=== PATIENT | female | born 1980 | race Caucasian/White ===

== ENCOUNTER 2020-11-10 07:01 | Outpatient (NON) | payer OTHER, SELFPAY ==
[2020-11-10 22:42] LABS: SARS-CoV-2 RNA PCR Negative
== END 2020-11-10 07:02 ==
PROVIDERS: PCP Family Medicine; Visit Provider Internal Medicine
DX: Z20.822 Contact with and (suspected) exposure to COVID-19 (principal)
CPT/HCPCS: C9803; U0003; U0005

== ENCOUNTER 2021-12-06 00:28 | Day surgery (SDC) | payer OTHER, SELFPAY ==
[2021-11-28 13:51] VITALS: BMI 30.2
--- NOTE | 2021-11-28 14:03 | PC.NURSE ---
Report to the Outpatient Waiting Room, entrance under the green pavilion located off [facility], at time 0600 on date 12/06/21. OR Time: 0730. - You will be asked a series of questions to screen for COVID 19 for your protection. - A mask is required within the hospital. - No visitors are allowed at this time. Preoperative COVID Testing Requirements: No COVID Test needed if: (proof is required; if not received patient will have Rapid Test prior to entry) - Patient has received COVID Vaccine at least 14 days prior to procedure date or - Patient has positive COVID test result within last 90 days of surgery date. COVID Test needed if above criteria is not met Patients may have clear liquids (water, carbonated beverages, clear teas, apple juice) until 3 hours prior to surgery with a maximum of 20 ounces. - No food from midnight until time of surgery Take the following medications with a SIP of water the morning of surgery: NONE Medications to discontinue per physician: VITAMINS/SUPPLEMENTS Date to take last dose: 12/02/21 Please no make-up, nail iranian, hairspray, perfume, deodorant, or body powder the day of surgery. No jewelry (including any body piercings) or valuables the day of surgery, leave them at home. Please take a shower or bath the night before, or the morning of, surgery with an antibacterial soap. Wear comfortable, loose fitting clothing. - Jewelry must be removed prior to entering the operating room. Rings and piercings that are not removed may be cut off. - The hospital will not accept responsibility for valuables. - Please leave all valuables, including medications, at home the day of surgery. If you are going home after surgery, a licensed mechanic driver must drive you home. - NO public transportation without another adult. - We recommend that an adult stay with you for 24 hours following discharge. - We also recommend that you do not drive, make important decision, drink alcoholic beverages, or take any drugs that were not prescribed by your health care provider for at least 24 hours after your discharge time. Follow any additional instructions given to you from your surgeon. Telephone instructions given to ESTEVAN CHAN and asked if any additional questions and then verbalized understanding. Patient advised to call surgeon office or pre surgery nurse liaison [phone] if any additional questions.
[2021-12-06] VITALS (11 sets, daily range): BP systolic 111–132; BP diastolic 59–87; PULSE 80–111; RESP 10–20; TEMP 36.5–36.6; O2SAT 94–100
[2021-12-06] MEDS: LACTATED RINGERS 1,000 ML 30 ML IV CONT ×2 (06:30→10:05)
[2021-12-06 06:34] LABS: Urine Cotinine NEGATIVE
--- NOTE | 2021-12-06 06:50 | WPDHPUPDATE1 ---
History and Physical Update Update Date/Time: 12/06/21 06:50 History and Physical has been reviewed, including an updated exam of the patient. There are NO changes in the patient's condition. Risks, benefits, and alternatives have been discussed and questions answered. Patient agrees to proceed with procedure.
--- NOTE | 2021-12-06 07:08 | P.OP_ITS ---
Procedure Note - Detailed Date of Procedure 12/06/21 Pre-op Diagnosis macromastia Post-op Diagnosis same Procedure Performed Bilateral reduction mammaplasty Surgeon Ozzy Yadav MD Anesthesia general Findings Bilateral Inverted T Superior Medial Pedicle Tissue Removed: Right - 933 grams Left - 904 grams Description of Procedure She is here today for bilateral breast reduction. Previously and again today the risks, benefits, alternatives were discussed in extensive detail. I wanted her to be very realistic about the risks involved as well as expectations. We discussed aftercare and what to monitor for. She understands we can never guarantee final breast size and there will always be asymmetry. I was very upfront and honest about the risks of sensation change and even nipple loss (). Made sure answered all of her questions to her satisfaction today and consent was obtained. She was marked in the preoperative holding area with their verification. The patient was taken to the operating room placed supine on the operating table. Anesthesia was provided by anesthesiology. She was prepped and draped in a standard sterile fashion. A surgical time-out was taken. Stab incisions were made and I tumessed with a tumescent solution. I marked out the nipple-areolar complex at 42 mm. I then de-epithelialized the pedicle. The pedicle was well left well more than 2 cm in thickness. I then removed the inferior portion of the breast as well as the central keel to get shape based on preoperative planning. At this point copiously irrigated with saline solution and verified a strict hemostasis. I reapproximated the pillars using a 2-0 PDS. I tailor tacked the breast into place with maye. She was placed in a sitting position. I verified the nipple-areolar complex position based on preoperative markings, intraoperative measurements, and observation which were in full agreement. This nipple-areolar complex was marked at 42 mm in size. I then placed supine and de-epithelialized this. Nipple-areolar complex was inset with 3-0 Monocryl. I closed IMF deep with 1 strattafix. I closed the vertical incision with 3-0 Monocryl in the IMF with 3- 0 stratafix. Then everything was closed using a running subcuticular 4-0 M onocryl followed by Steri-Strips. A dressing was placed followed by surgical bra. Patient was awoke and taken to PACU without difficulty. All instrument sponge counts were correct at the end of the case. Estimated Blood Loss 50 Drains No Packing No Pathology yes Complications No immediate complications Condition stable Disposition PACU
[2021-12-06] MEDS: SCOPOLAMINE 1.5 MG PATCH TRANSDERM (07:17)
[2021-12-06] MEDS: LACTATED RINGERS IRRIG 1,000 ML, LIDOCAINE HCL 1% LOCAL INJ 50 ML, EPINEPHrine HCL INJ ... INFILTRATE (07:28)
[2021-12-06] MEDS: ceFAZolin 2 GM/D5W 50 ML 2 GM/50 ML BAG IVPB (07:28)
[2021-12-06] MEDS: TRANEXAMIC ACID 1,000MG/ISO100 1,000 MG/100 ML BAG 200 MG IVPB (07:35)
--- NOTE | 2021-12-06 07:51 | WPDANESEPPF ---
Anes - Initial Pre Proc Eval Procedure: Operation Date: 12/06/21 07:30 Proposed Procedures p Bilateral Breast Reduction - Ozzy Yadav MD Date/Time: 12/06/21 07:51 Surgeon: Ozzy Yadav MD Pre Op Diagnosis: macromastia Patient Data Age: 41 Gender: F Height: 1.57 m Weight: 76.7 kg Last Vital Signs Temp 36.6 C 12/06/21 06:12 Pulse 83 12/06/21 06:12 Resp 20 12/06/21 06:12 BP 132/86 12/06/21 06:12 Pulse Ox 98 12/06/21 06:12 Allergies Allergy/AdvReac Type Severity Reaction Status Date / Time amoxicillin Allergy Severe Hives Verified 12/06/21 06:19 Penicillins Allergy Severe Hives Verified 12/06/21 06:19 erythromycin base Allergy Mild Nausea and Verified 12/06/21 06:19 Vomiting Home Medications Medication Instructions Recorded Confirmed Type folic acid 0.8 mg capsule 0.8 mg PO DAILY 05/29/21 11/28/21 History trazodone 50 mg tablet See Rx Instructions PO QHS #60 05/29/21 12/06/21 Rx tablet docusate sodium 100 mg capsule 100 mg PO DAILY #14 cap 11/27/21 12/06/21 Rx hydrocodone 5 mg-acetaminophen 325 1 tablet PO Q6H PRN #30 tablet 11/29/21 12/06/21 Rx mg tablet ondansetron HCl 4 mg tablet 4 mg PO Q6H #30 tablet 11/29/21 12/06/21 Rx Laboratory Tests 12/06/21 06:08 Cotinine Negative Patient hx anesthesia problems: none Family hx anesthesia problems: none Results Review: All pre-operative results and documents have been reviewed as part of the pre-operative evaluation. [facility] Past Medical History Medical History BMI 32.0-32.9,adult Chronic back pain Elevated lipids Encounter for preventive health examination GERD (gastroesophageal reflux disease) Insomnia On termite inspector drug therapy Stress at work Surgical History Surgical History History of 2 sections 2012 & 2016 History of total hysterectomy with bilateral salpingo-oophorectomy (BSO) ~ Family History Family History Father Family history of cardiovascular disease Cerebrovascular accident Depression Grandparent Depression Family history of elevated blood lipids Family history of cardiovascular disease Cerebrovascular accident Malignant neoplasm of prostate Family history of malignant neoplasm of breast Grandparent Cerebrovascular accident Grandparent Lewy body dementia Mother Heart disease Valvular heart disease Social History Social History Smoking status: Former smoker Tobacco type: cigarettes Smoking end date: 10/27/11 Additional smoking assessment comments: SOCIAL SMOKER IN PAST Alcohol intake: current Alcohol use details: 2/MONTH Substance use: current Substance use type: marijuana Other substance usage details: JEREMYLASEA Living arrangements: with family Spiritual care concerns: No Anes - Eval Final PreProcedure Day of Procedure 12/06/21 07:51 Patient weight: obese Heart: regular rate and rhythm Lungs: clear to auscultation Airway: Mallampati scale class II Neurological: alert and oriented Last oral intake: >/= 8 hours ASA classification: II Emergent: no Anesthetic plan: proceed Anesthesia type and monitoring: general ETT and standard monitoring Results Review: All pre-operative results and documents have been reviewed as part of the pre-operative evaluation. Informed Consent: The patient's anesthetic plan and its attendant risks and benefits were discussed with the patient/family/POA. Questions were solicited and answers provided to the satisfaction of the patient/family/POA.
[2021-12-06] MEDS: fentaNYL CITRATE INJ (*CRX) 100 MCG/2 ML VIAL 25 MCG IV PUSH ×2 (10:27→10:30)
[2021-12-06] MEDS: diphenhydrAMINE HCl INJ 50 MG/ML VIAL 25 MG IV PUSH (10:35)
[2021-12-06] MEDS: oxyCODONE HCL (*CRX) 5 MG TAB IR PO (12:00)
== END 2021-12-06 12:45 | disposition home or self-care (01) ==
PROVIDERS: PCP Internal Medicine; Visit Provider Surgery Plastic and Reconstructive Surgery
PROC: 0HBV0ZZ Excision of Bilateral Breast, Open Approach (ICD-10-PCS; CPT 19318; principal; 2021-12-06 07:30)
DX: Z41.1 Encounter for cosmetic surgery (principal); N64.4 Mastodynia; K21.9 Gastro-esophageal reflux disease without esophagitis; G47.00 Insomnia, unspecified; N60.32 Fibrosclerosis of left breast; N60.31 Fibrosclerosis of right breast; N60.42 Mammary duct ectasia of left breast; N60.41 Mammary duct ectasia of right breast; N60.22 Fibroadenosis of left breast; Z87.891 Personal history of nicotine dependence; N62 Hypertrophy of breast; L82.1 Other seborrheic keratosis; M54.2 Cervicalgia; M25.511 Pain in right shoulder; M25.512 Pain in left shoulder; L30.4 Erythema intertrigo; F12.90 Cannabis use, unspecified, uncomplicated; E66.9 Obesity, unspecified; Z68.30 Body mass index [BMI] 30.0-30.9, adult
CPT/HCPCS: 19318; 80307; 88305; A9270; J0171; J0690; J1100; J1170; J1200; J2250; J2405; J2704; J3010; J7120

== ENCOUNTER 2023-12-01 00:18 | Day surgery (SDC) | payer BC, SELFPAY ==
[2023-11-24 12:55] VITALS: BMI 27.4
--- NOTE | 2023-11-24 13:01 | PC.NURSE ---
Report to the Outpatient Waiting Room, entrance under the green pavilion located off [facility], at time 0930 on date 12/01/23. Planned Procedure Time: 1130. Time changes happen often and if your time is changed the preop area will call you the afternoon before. - You and your visitor will be asked to self-screen and do not enter if you have any COVID symptoms. - A mask is optional within the hospital at this time. Patients may have clear liquids (water, carbonated beverages, clear teas, apple juice) until 3 hours prior to surgery with a maximum of 20 ounces. - No food from midnight until time of surgery Take the following medications with a SIP of water the morning of surgery: NONE DO NOT STOP ANY OF YOUR OTHER PRESCRIPTION MEDICATIONS PRIOR TO SURGERY ?EXCEPT THE FOLLOWING Medications to discontinue per physician: WEGOVY Date to take last dose: NO MORE UNTIL AFTER SURGERY STOP VITAMINS/SUPPLEMENTS AFTER 11/27/23 Please no make-up, nail ukrainian, hairspray, perfume, deodorant, or body powder the day of surgery. No jewelry (including any body piercings) or valuables the day of surgery, leave them at home. Please take a shower or bath the night before, or the morning of, surgery with an antibacterial soap. Wear comfortable, loose fitting clothing. - Jewelry must be removed prior to entering the operating room. Rings and piercings that are not removed may be cut off. - The hospital will not accept responsibility for valuables. - Please leave all valuables, including medications, at home the day of surgery. If you are going home after surgery, a licensed subway train driver must drive you home. - NO public transportation without another adult if you receive anesthesia. - We recommend that an adult stay with you for 24 hours following discharge. - We also recommend that you do not drive, make important decision, drink alcoholic beverages, or take any drugs that were not prescribed by your health care provider for at least 24 hours after your discharge time. Follow any additional instructions given to you from your surgeon. If you or anyone in your household have experienced Covid symptoms in the past week, please notify your surgeon or the nurse liaison at the phone number below for possible testing. Telephone instructions given to PT - ESTEVAN CHAN and asked if any additional questions and then verbalized understanding. Patient advised to call surgeon office or pre surgery nurse liaison [phone] if any additional questions.
--- NOTE | 2023-11-30 20:31 | PM.IMHP ---
H&P: HPI History of Present Illness Date/Time: 11/30/23 20:31 Chief Complaint: AUB Narrative: Radha is a 43yo P2002, LMP 10/29/23 who presents for scheduled surgery. She has a normal pap 08/2022. She reports her periods are heavy with passage of clots and has mild cramping the first two days, but then pretty much stop. 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 US 2021 showed normal uterus with small 2.7cm fibroid. She reports bothersome PMS symptoms. She used to be on Loestrin and it helped with both but caused weight gain; also worried about as her heavy cycles have resumed (underwent IVF to be able to conceive her second due to the Asherman's). She is now on weight loss shots and has lost 35lbs; wanting to retry contraception. She had a LOADER TECHNICIAN US 11/19/23, which showed a thickened endometrium of 1.6cm; EMB was initially planned, but D&C was recommended to be able to remove all the tissue. A 1cm cervical polyp was also noted on exam. Review of Systems Constitutional: Constitutional: Denies chills, Denies fever(s) and Denies headache(s) Eyes: Eyes: Denies change in vision ENT: Denies dizziness and Denies headache(s) Cardiovascular: Cardiovascular: Denies chest pain and Denies dyspnea Respiratory: Respiratory: Denies cough and Denies dyspnea Gastrointestinal: Gastrointestinal: Denies abdominal pain and Denies change in stool character Genitourinary: Genitourinary: Reports abnormal menses, Reports menorrhagia, Reports pelvic pain, Denies vaginal discharge, Denies vaginal odor and Denies vaginal pruritus Neurologic: Denies dizziness and Denies headache(s) Psychiatric: Psychiatric: Denies anxiety and Denies depression [facility] Past Medical History Medical History BMI 32.0-32.9,adult Chronic back pain Elevated lipids Encounter for preventive health examination GERD (gastroesophageal reflux disease) Insomnia 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 mammogram for breast cancer Stress at work Surgical History Surgical History H/O unilateral salpingectomy right History of 2 sections 2012 & 2017 Hx of breast reduction, elective Family History Family History Father Family history of cardiovascular disease Cerebrovascular accident Depression Grandparent Depression Family history of elevated blood lipids Family history of cardiovascular disease Cerebrovascular accident Malignant neoplasm of prostate Family history of malignant neoplasm of breast Grandparent Cerebrovascular accident Grandparent Lewy body dementia Mother Heart disease Valvular heart disease Social History Social History (Updated 10/29/23 @ 09:19 by Rajani Alvarenga MA) Smoking status: Never smoker Tobacco type: cigarettes Smoking end date: 10/27/11 Additional smoking assessment comments: SOCIAL SMOKER IN PAST Alcohol intake: current Alcohol use details: RARE Substance use: current Substance use type: marijuana Other substance usage details: GUMMIES Do You Feel Safe in your Home?: Yes Lack of Transportation: No Lack of Food: Never True Current Housing: I Have Housing Concerned About Future Housing: No Difficulty Paying Gas/Electric Bills: No Difficulty Paying for Meds: No Currently Unemployed: No Education: Master's Degree or Higher Difficulty w/ Childcare or Family Care: No Living arrangements: with family Occupation/Education: occupation Gender identity (if verbalized by the patient): Female Sexual Orientation (if Verbalized by the Patient): Straight or Heterosexual Spiritual care concerns: No Meds Home Medications and Allergies Home Medications Medication Instructions Recorded Confirmed Type etonogestrel 0.12 mg-ethinyl 1 vag ring vaginal Q21D #4 e
--- NOTE | 2023-12-01 07:14 | WPDHPUPDATE1 ---
History and Physical Update Update Date/Time: 12/01/23 07:14 History and Physical has been reviewed, including an updated exam of the patient. There are NO changes in the patient's condition. Risks, benefits, and alternatives have been discussed and questions answered. Patient agrees to proceed with hysteroscopy with D&C and polypectomy.
[2023-12-01 10:00] VITALS: BP 108/71; PULSE 83; RESP 16; TEMP 37; O2SAT 98
[2023-12-01] MEDS: LACTATED RINGERS 1,000 ML 30 ML IV CONT ×2 (10:15→12:35)
[2023-12-01] MEDS: ACETAMINOPHEN 500 MG TABLET 1000 MG PO (10:15)
--- NOTE | 2023-12-01 11:05 | WPDANESEPPF ---
Anes - Initial Pre Proc Eval Procedure: Operation Date: 12/01/23 11:30 Proposed Procedures p Hysteroscopy, Dilation and Curettage with Polypectomy - Ruma Felix MD Date/Time: 12/01/23 11:05 Surgeon: Ruma Felix MD Pre Op Diagnosis: cervical polyp Patient Data Age: 43 Gender: F Height: 1.57 m Weight: 67.4 kg Last Vital Signs Temp 37.0 C 12/01/23 10:00 Pulse 83 12/01/23 10:00 Resp 16 12/01/23 10:00 BP 108/71 12/01/23 10:00 Pulse Ox 98 12/01/23 10:00 O2 Del Method Room Air 12/01/23 10:00 Allergies Allergy/AdvReac Type Severity Reaction Status Date / Time amoxicillin Allergy Severe Hives Verified 12/01/23 10:45 Penicillins Allergy Severe Hives Verified 12/01/23 10:45 erythromycin base AdvReac Mild Nausea and Verified 12/01/23 10:45 Vomiting Home Medications Medication Instructions Recorded Confirmed Type etonogestrel 0.12 mg-ethinyl 1 vag ring vaginal Q21D #4 ea 10/29/23 12/01/23 Rx estradiol 0.015 mg/24 hr vaginal ring (NuvaRing) semaglutide (weight loss) 1.7 1.7 mg (0.75 mL) subcut WEEKLY #3 10/29/23 12/01/23 Rx mg/0.75 mL subcutaneous pen mL injector (Wegovy) trazodone 50 mg tablet See Rx Instructions PO QHS #60 tabs 11/17/23 12/01/23 Rx melatonin 10 mg tablet 10 mg PO HS PRN Insomnia 11/24/23 12/01/23 History Patient hx anesthesia problems: none Family hx anesthesia problems: none Results Review: All pre-operative results and documents have been reviewed as part of the pre-operative evaluation. [facility] Past Medical History Medical History BMI 32.0-32.9,adult Chronic back pain Elevated lipids Encounter for preventive health examination GERD (gastroesophageal reflux disease) Insomnia On assisted drug therapy Screening mammogram for breast cancer Stress at work Surgical History Surgical History H/O unilateral salpingectomy right History of 2 sections 2013 & 2017 Hx of breast reduction, elective Family History Family History Father Family history of cardiovascular disease Cerebrovascular accident Depression Grandparent Depression Family history of elevated blood lipids Family history of cardiovascular disease Cerebrovascular accident Malignant neoplasm of prostate Family history of malignant neoplasm of breast Grandparent Cerebrovascular accident Grandparent Lewy body dementia Mother Heart disease Valvular heart disease Social History Social History Smoking status: Never smoker Tobacco type: cigarettes Smoking end date: 10/27/11 Additional smoking assessment comments: SOCIAL SMOKER IN PAST Alcohol intake: current Alcohol use details: RARE Substance use: current Substance use type: marijuana Other substance usage details: GUMMIES Do You Feel Safe in your Home?: Yes Lack of Transportation: No Lack of Food: Never True Current Housing: I Have Housing Concerned About Future Housing: No Difficulty Paying Gas/Electric Bills: No Difficulty Paying for Meds: No Currently Unemployed: No Education: Master's Degree or Higher Difficulty w/ Childcare or Family Care: No Living arrangements: with family Occupation/Education: occupation Gender identity (if verbalized by the patient): Female Sexual Orientation (if Verbalized by the Patient): Straight or Heterosexual Spiritual care concerns: No Anes - Eval Final PreProcedure Day of Procedure 12/01/23 11:05 Patient weight: overweight Heart: regular rate and rhythm Lungs: clear to auscultation Airway: Mallampati scale class II Neurological: alert and oriented Last oral intake: >/= 8 hours ASA classification: II Emergent: no Anesthetic plan: proceed Anesthesia type and monitoring: general GIVS and standard monitoring Re
--- NOTE | 2023-12-01 12:28 | SUR.OPER ---
EBL 10. Fluid Deficit 70 cc
[2023-12-01 12:35] VITALS: BP 116/69; PULSE 96; RESP 12; O2SAT 93
--- NOTE | 2023-12-01 12:35 | W.PM.PROC2 ---
Procedure Note - Detailed Date of Procedure 12/01/23 Pre-op Diagnosis cervical polyp AUB Post-op Diagnosis Same Procedure Performed Hysteroscopy, D&C with polypectomy Surgeon Ruma Felix MD Anesthesia MAC Findings 1.5cm polyp protruding through cervix; arising from endocervix -- removed using polyp forceps. Uterus sounded to 9cm. Bilateral tubal ostia visualized. Diffusely thickened endometrium throughout; significant amount of tissue removed with D&C. Good hemostasis at end of case. Fluid deficit: 70cc Description of Procedure Radha was taken to the operating room where she was placed under sedation without complications. She was then prepped and draped in the usual sterile fashion in the dorsal lithotomy position with her legs in low Navjot stirrups. A time-out was performed and no perioperative antibiotics were indicated. A bivalve speculum was placed within the vagina where the cervix was easily identified. The anterior lip of the cervix was grasped with a single-tooth tenaculum. The polyp protruding through the endocervix was grasped with a polyp forceps and twisted along its stalk and removed without issues. The cervix was then serially dilated to allow for the hysteroscope. The hysteroscope was advanced into the uterine cavity with the above findings noted. A curettage was then performed until a good uterine cry was felt throughout the uterus. Good hemostasis was noted. All instruments were removed from the vagina. Sponge, lap, instrument, and needle counts were correct at the end of the procedure. Patient was awoken from anesthesia and taken to recovery with plans of same-day discharge home. Estimated Blood Loss 10 IV Fluids 1,000 Drains No Packing No Pathology Yes (polyp and endometrial curetting's. ) Complications No immediate complications Condition Stable Disposition Same day [facility] Billing Surgery - Charge Forward: Surgery Billing
[2023-12-01 13:05] VITALS: BP 114/72; PULSE 76; RESP 16; O2SAT 96
== END 2023-12-01 13:30 | disposition home or self-care (01) ==
PROVIDERS: PCP Internal Medicine; Visit Provider Obstetrics & Gynecology
PROC: 0U5B8ZZ Destruction of Endometrium, Via Natural or Artificial Opening Endoscopic (ICD-10-PCS; CPT 58563; principal; 2023-12-01 11:30)
DX: N92.0 Excessive and frequent menstruation with regular cycle (principal); N84.1 Polyp of cervix uteri; N72 Inflammatory disease of cervix uteri; K21.9 Gastro-esophageal reflux disease without esophagitis; G47.00 Insomnia, unspecified; G89.29 Other chronic pain; M54.9 Dorsalgia, unspecified; Z98.890 Other specified postprocedural states; N85.6 Intrauterine synechiae; Z82.49 Family history of ischemic heart disease and other diseases of the circulatory system; Z80.42 Family history of malignant neoplasm of prostate; Z80.3 Family history of malignant neoplasm of breast; F12.90 Cannabis use, unspecified, uncomplicated; Z79.85 Long-term (current) use of injectable non-insulin antidiabetic drugs
CPT/HCPCS: 58558; 88305; A9270; J1100; J2250; J2405; J2704; J3010; J7120

== ENCOUNTER 2024-06-08 08:44 | Outpatient (CLI) | payer BC, SELFPAY ==
--- NOTE | ~2024-06-08 | US_ITS ---
EXAMINATION: US thyroid DATE: 06/08/2024 09:21 INDICATION: Abnormal thyroid function tests. Other fatigue. TECHNIQUE: Multiple ultrasound images of the thyroid were obtained. COMPARISON: None. FINDINGS: The right thyroid lobe measures 5.0 x 1.7 x 1.7 cm. The left thyroid lobe measures 4.9 x 1.2 x 1.7 c m. In the right thyroid lobe, there is a 9 mm solid, hypoechoic, wider than tall nodule with smooth margin without echogenic foci (TI-RADS TR4). In the left thyroid lobe, there are two 4 mm nodules. IMPRESSION: 1. Small thyroid nodules, likely not clinically significant. No follow-up is needed. Reviewed, dictated and finalized at location A. IMPRESSION: 1. Small thyroid nodules, likely not clinically significant. No follow-up is ne eded.
== END 2024-06-08 08:45 | disposition home or self-care (01) ==
PROVIDERS: PCP Internal Medicine; Visit Provider Internal Medicine
DX: E04.2 Nontoxic multinodular goiter (principal); R79.89 Other specified abnormal findings of blood chemistry; R53.83 Other fatigue
CPT/HCPCS: 76536

== ENCOUNTER 2024-11-30 13:47 | Outpatient (CLI) | payer BC, SELFPAY ==
--- OUTSIDE RECORDS SUMMARY | 2024-11-30 13:59 | XMS_ITS | Clinical Summary ---
Author Organization [facility] Address [address] [place] [address] Care Team Providers Care College Physics Instructor Name Role Phone Blaine Cooley MD Primary Care Provider [phone] Source Comments [facility],non-owned Affiliates and Associated Physician Practices is amultiple site organization consisting of ambulatory clinics and hospital sitesin [place], [place], [place] and [place]. This disclosure is being madepursuant to the Care Everywhere program and may not contain all information available regarding this patient. Last updated 18.[facility] [place] Social History Tobacco Use Types Packs/Day Years Used Date Smoking Tobacco: Never Assessed Sex and Gender Information Value Date Recorded Sex Assigned at Not on file Gender Identity Not on file Sexual Orientation Not on file Last Filed Vital Signs Vital Sign Reading Time Taken Comments Blood Pressure 112/72 02/26/2017 2:14 PM CDT Pulse 76 02/26/2017 2:14 PM CDT Temperature - - Respiratory Rate - - Oxygen Saturation - - Inhaled Oxygen Concentration - - Weight 83 kg (183 lb) 02/26/2017 2:14 PM CDT Height 157.5 cm (5' 2 ) 02/26/2017 2:14 PM CDT Body Mass Index 33.47 02/26/2017 2:14 PM CDT Plan of Treatment Health Maintenance Due Date Last Done Comments LIPID TESTING 1980 MAMMOGRAM 1980 PAP SMEAR 1980 HIV SCREENING 1995 HEPATITIS C SCREENING 08/13/1998 DTAP/TDAP/TD VACCINES (1 - Tdap) 1999 HEPATITIS B VACCINE (1 of 3 - 19+ 3-dose series) 1999 COVID-19 VACCINE (2023-2 5 season) 2024 INFLUENZA VACCINE (#1) 2024 DEPRESSION SCREENING 10/27/2024 ZOSTER VACCINE (1 of 2) 2030 HIB VACCINE Aged Out No longer eligi ble based on patient's age to complete this topic HPV VACCINE Aged Out No longer eligi ble based on patient's age to complete this topic MENINGOCOCCAL (Group B) VACCINE Aged Out No longer eligible based on patient's age to complete this topic MENINGOCOCCAL VACCINE Aged Out No jc alice eligible based on patient's age to complete this topic PNEUMOCOCCAL VACCINE Aged Out No long er eligible based on patient's age to complete this topic Care Teams College Physics Instructor Relationship Specialty Start Date End Date Blaine Cooley MD [address] [facility] [address] [place] [id number] PCP - General 12/10/21
--- OUTSIDE RECORDS SUMMARY | 2024-11-30 13:59 | XMS_ITS | Patient Health Summary ---
Author Organization [facility] Address [address] [facility] [place] [address] Care Team Providers Care Nursing Scheduler Name Role Phone Blaine Cooley MD Primary Care Provider [phone] Note from [facility],non-owned Affiliates and Associated Physician Practices is amultiple site organization consisting of ambulatory clinics and hospital sitesin [place], [place], [place] and [place]. This disclosure is being madepursuant to the Care Everywhere program and may not contain all information available regarding this patient. Last updated 18.[facility] Social History Tobacco Use Types Packs/Day Years [...] Mass Index 33.47 02/26/2017 2:14 PM CDT Procedures * DERMATOPATHOLOGY(Performed 03/19/2022) * URINALYSIS - POINT OF CARE (AMB) [facility](Performed 02/26/2017) * BLOOD TYPE ABO+ RH PANEL(Performed 08/23/2016) Results * DERMATOPATHOLOGY (03/19/2022 12:00 AM CDT) Case Report Dermatopathology Report ? Case: [id number] ? Authorizing Provider: ??Meghan Sanderson MD ?Collected: ? 03/19/2022 12:00 AM ? Ordering Location: ? [facility] Derm[facility] Lab ?Received: ?03/20/2022 11:23 AM ? Pathologist: ? Heriberto Chen MD ? Specimen: ?Skin, frontal scalp ? 2 2:43 PM CDT DERMATOPATHOLOGY LABORATORY Final Diagnosis Specimen A. SKIN, frontal scalp: INTRADERMAL MELANOCYTIC NEVUS (D22.4) 2 2:43 PM CDT DERMATOPATHOLOGY LABORATORY Clinical History Growing Nevus vs. BCC 2 2:43 PM CDT DERMATOPATHOLOGY LABORATORY Gross Description Specimen A: Received is one formalin filled container labeled with the patient's name and designated frontal scalp. The specimen consists of a shave biopsy measuring [id number]. Jar 0. 2 2:43 PM CDT DERMATOPATHOLOGY LABORATORY Microscopic Description Specimen A. SKIN, frontal scalp: There are nests of cytologically bland melanocytes within the dermis that mature with depth. 2 2:43 PM CDT DERMATOPATHOLOGY LABORATORY Disclaimer An external and internal positive and negative controls are appropriate for the histochemical, immunohistochemical and immunofluorescence stain(s) in this case (if any), except where stated explicitly. The performance characteristics of the stain(s) cited in this report were developed and its performance characteristic determined by the Dermatopathology Laboratory at [facility], directed by Dr. Michelle Chen. These tests need not be, and therefore are not, approved by the [place] Food and Drug Administration. The tests are used for clinical purposes. Billing Codes Specimen Charges Stain Charges 57344 1 2 2:43 PM CDT DERMATOPATHOLOGY LABORATORY Embedded Images 2 2:43 PM CDT DERMATOPATHOLOGY LABORATORY Pathology/Cytolog y TISSUE SPECIMEN FROM SKIN / Unknown 03/19/2022 03/20/2022 11:23 AM CDT Meghan Sanderson MD LAB - PATHOLOGY/CYTO LOGY ORDERABLES DERMATOPATHOLOGY LABORATORY [facility] Department of Dermatology [address], [address] [phone] * URINALYSIS - POINT OF CARE (AMB) [facility] (02/26/2017) Glucose UA n [facility] Bilirubin UA POCT n [facility] Ketones UA POCT n [facility] Specific [place] UA 1.010 [facility] Blood Urine POCT n [facility] pH UA 6 [facility] Protein UA n [facility] Urobilinogen UA n [facility] Nitrite UA n [facility] WBC UA n [facility] Urine specimen (specimen) 02/26/2017 Historical Provider LAB - POINT OF CA RE ORDERABLES [facility] * BLOOD TYPE ABO+ RH PANEL (08/23/2016 9:48 AM CDT) ABO O 08/23/2016 12:19 PM CDT [facility] Rh Type Positive 08/23/2016 12:19 PM CDT [facility] Comment:History check perfor med. Retype required. Blood Bank BLOOD SPECIMEN / Unknown Venipuncture / Unknown 08/23/2016 9:48 AM CDT 08/23/2016 11:55 AM CDT Provider Unknown LAB - BLOOD BANK ORD ERABLES [facility] [address] Care Teams Nursing Scheduler Relationship Specialty Start Date End Date Blaine Cooley MD [address] [facility] [address] [place] [address] PCP - General 12/10/21
--- OUTSIDE RECORDS SUMMARY | 2024-11-30 13:59 | XMS_ITS | Data Portability ---
Author Organization [facility], Main Office Address [address] [place] [phone] Assessment No assessment recorded. Plan of Treatment Reminders Order Date Submit Date Provider Last Modified By Organization Details Last Modified Time Details Appointments None record ed. Lab None record ed. Referral None record ed. Procedures None record ed. Surgeries None record ed. Imaging None record ed. Medication Orders None record ed. Patient TargetsNo targets recorded. Patient Instructions Encounter Date Encounter Id Patient Instructions Last Modified By Organization Details Last Modified Time 09/15/2024 [id number] She will f/u wit h me only as needed. On today's visit I spent a total of {{30 35 40* 45 50 55 60}} minutes prepping for her visit (reviewing shared records), [id number] with her and documenting. [email or web address] Not available 09/15/2024 18:49:09 Reason for Referral None Reported. Problems Name Problem SNOMED Code Status Onset Date Resolution Date Notes Provider Name and Address Organization Details Recorded Time External hemorrhoids 56678687 Active 2023 Jagruti Ovalle MD [address] [place] [address],[address], [phone], [facility] 4 18:48:42 Pile easily reducible 058271015 Active 202309/15/24: No tx - monitor symptoms Jagruti Ovalle MD [address] [place] [address],[address], [phone] [place] [address] [facility] 4 18:48:56 Problem Notes None recorded. Procedures Surgical History Date Name Laterality Status Provider Name and Address Organization Details Recorded Time 09/15/20 Anoscopy completed Jagruti Ovalle MD [address] [facility],[address], [place], [address], [facility] 09/15/2024 18:44:10 10/27/19 23 Date of Last Mammogram completed TIM SANTOS [facility] 09/15/2024 16:11:21 10/27/19 23 Date of Last Pap Smear completed TIM DANIELLE [facility] 09/15/2024 16:11:23 Salpingectomy completed TIM DANIELLE [facility] 09/15/2024 16:11:01 [facility] 09/15/2024 16:11:07 Imaging Results None recorded. Procedure Notes None recorded. Medical Equipment None Reported. Allergies No known drug allergies Medications Name Sig Start Date Stop Date Status Note LastModified by Organization Details LastModified Time trazodone 50 mg tablet active Not Available Not Available No t Available ibuprofen 800 mg tablet 2023 completed Not Available Not Available Not Available NuvaRing 0.12 mg-0.015 mg/24 hr vaginal active Not Available Not Available N ot Available Wegovy 2.4 mg/0.75 mL subcutaneous pen injector active Not Available Not Available Not Available Wegovy 1.7 mg/0.75 mL subcutaneous pen injector 2023 completed Not Available Not Available Not Available Zepbound 15 mg/0.5 mL subcutaneous pen injector 2023 completed Not Available Not Available Not Available Vitals None Recorded Social History Question Answer Notes LastModified by Organizat ion Details LastModified Time Tobacco Smoking Status Former Smoker TIM SANTOS [facility] 09/15/2024 16:10:32 Alcohol Use Yes [email or web address] Information not available 09/15/2024 Alcohol Amount Occasional [email or web address] Informati on not available 09/15/2024 Caffeine Use Yes [email or web address] Information not available 09/15/2024 Caffeine Type Coffee Informatio n not available 09/15/2024 Caffeine Amount 1 Cup/day [email or web address] Information not available 09/15/2024 Illicit Drug Use Yes [email or web address] Information not available 09/15/2024 Illicit Drug Type Thc Gummies Information not available 09/15/2024 What Was The Date Of Your Most Recent Tobacco Screening? 09/15/2024 [email or web address] Information not available 09/15/2024 How Much Tobacco Do You Smoke? 0.5 PPD [email or web address] Information not available 09/15/2024 Sex: Unknown Functional Status None recorded. Mental Status None recorded. Family History Relationship Description Onset Age of this Age Resolved Age Notes LastModified by Organization Details LastModified Time Maternal Grandfather Malignant tumor of prostate 70 82 [email or web address] Not available 08/28 16:09:38 Maternal Grandmother Malignant tumor of breast 70 84 [email or web address] Not available 08/28 16:09:58 Father Cerebrovascu lar accident 60 [email or web address] Not available 1 11/15/2023 16:10:06 Medical History Condition Response Coronary Artery Disease N Other N Atrial Fibrillation N Kidney Stones N Hyperthyroidism N Hernia N Glaucoma N Depression N COPD N Hypothyroidism N Accidental Bowel Leakage N Headaches/Migraines N Deep Vein Thrombosis N Cardiac Dysrhythmia N Anxiety Disorder N MRSA/VRE Exposure N Genital Herpes N Diverticulosis N Cancer N Stroke N Head Trauma N Genital Warts N Crohn's Disease N Liver Disease/Hepatitis N HIV/AIDS N High Cholesterol N Irritable Bowel Syndrome N Autoimmune Disease N Kidney Disease N Anemia N Celiac Disease N Arthritis/Gout N Anal/Rectal Trauma/Injury N Diabetes N Cataracts N Bleeding Disorder N Seizures/Epilepsy N Congestive Heart Failure (CHF) N Diverticulitis N Heart Attack N Asthma N Reflux/GERD N Ulcerative Colitis N Sleep Apnea N Mitral Valve Prolapse N Aneurysm N Heart Disease N Pulmonary Embolism N Hypertension N Colon/Rectal Polyps N Gynecological History Statement/Question Response Number of Pregnancies? 2 Tear or Laceration During Delivery? N Number of C-Sections? 2 Date of Last Mammogram 10/27/2022 Accidental Bowel Leakage Post Delivery? N Episiotomy During Delivery? N Date of Last Pap Smear 10/27/2022 Obstetrics History GPAL:G 0 P 0 0 0 0 Past Encounters Encounter ID Performer Location Encounter Start Date Encounter Closed Date Diagnosis/Indication Diagnosis SNOMED-CT Code Diagnosis ICD10 Code Diagnosis Note [id number] Jagruti Ovalle MD Main Office [address] [place] [address] 09/15/2024 15:36:45 09/15/2024 16:47:38 Pile easily reducible 079701858 K64.1 Stage 2 internal hemorrhoid s: I discussed hemorrhoid s in general with her as well as the treatment options. She now understand s that any non-surgic al procedure (infrared coagulatio n or banding) would be done on her internal hemorrhoid s. I gave her full informed consent for IRC including risks, benefits and alternativ es (I would need to more fully detail potential side effects before treating her). All questions were answered. We decided to have her monitor her symptoms for awhile longer before starting treatment. I d/w her that if she does return, she would be a total of 3 treatment starting with the LL.We did discuss getting a c-scope given her bleeding. I advised there is no absolute reason to ge a scope now. Her bleeding is in the setting of hemorrhoid swelling and discomfort . She knows that if her bleeding worsens, she should follow up. She is also aware she is due for a screening c-scope next July when she turns 45. External hemorrhoids 239 [address]2110 K64.4 These would improve with IRC. She understand s the only way to directly treat external hemorrhoid s/skin tags would be with a surgical excision. She does not wish to pursue this and her hemorrhoid s are not bad enough to warrant surgery. She should continue using the moist baby wipes after BM's. Health Concerns Section Related Observation LastModified by Organization Detai ls LastModified Time None Recorded Concern Status LastModified by Organization Details LastModified Time None Recorded Advance Directives Directive None Recorded Payers Encounter Date Sequence Insurance Name Policy Number Policy Howe Covered Member ID Howe Member ID Guarantor Name 09/15/2024 1 [place] [id number] Radha Albarran [id number] Radha Albarran Notes Date Note Type Note Provider Name and Address Organization Details Recorded Time 09/15/2024 text/html This is a very pleasant 44 year old woman who has had symptoms from her hemorrhoids on and off for the last 12 years starting with her first (). These worsened with her second . Over the years her baseline symptoms have been occasional discomfort and swelling, but nothing persistent or terrible.Over the last 2 - 4 years, her symptoms have become more frequent and bothersome. She presents today for an evaluation and to discuss her treatment options. Bleeding: She occasionally sees BRB on the wipe with a BM. She has recently had some dripping of blood in the water. This is painless bleeding. She has never had heavy bleeding and no leakage of blood in between BM's. Pain: Not really Itching: She gets a lot of external irritation and itching when she is more flared. Discharge: It is always hard to get clean after BM's because of swelling and irritation. She does not have difficulty staying clean - she does not have to re-wipe. She has no drainage. Prolapse: Not that she feels or has to manually reduce. External swelling: She has external swelling with flares. She has a tag that has been present since her first . She states this can swelling with flares. Discomfort: She has the external irritation/discomf ort. She has internal throbbing if she has been standing a lot. Previous Hemorrhoid Treatment: She has used OTC hemorrhoid cream but has not found it to be helpful. She has never had a prescription for or procedure on her hemorrhoids. Previous Lower GI Endoscopy: She has never had a c-scope. Bowel Habits: She has had long standing daily BM's that are loose (Ozark Scale type 5 - 6). These are not urgent. She has been on Wegovy for weight loss for about 1 1/2 years and she gets more loose BM's for a few days after doing an infection (it has never caused her constipation). Jagruti Ovalle MD [address] [facility], [place], [address], [facility] 09/15/2024 18:50:14 OBGyn Episode No OBEpisode recorded.
--- OUTSIDE RECORDS SUMMARY | 2024-11-30 13:59 | XMS_ITS | Encounter Summary ---
Author Organization [facility] Address [address] [facility] [place] [address] Care Team Providers Care Family And Consumer Science Professor Name Role Phone Blaine Cooley MD Primary Care Provider [phone] Encounter Details Date Type Department Care Team (Late st Contact Info) Description 08/23/2016 Lab Requisition [facility] [address] [place] [id number] Unknown, Provider Social History Tobacco Use Types Packs/Day Years Used Date Smoking Tobacco: Never Assessed Sex and Gender Information Value Date Recorded Sex Assigned at Not on file Gender Identity Not on file Sexual Orientation Not on file documented as of this encounter Plan of Treatment Not on file documented as of this encounter Procedures Procedure Name Priority Date/Time Associated Diagnosis Comments BLOOD TYPE ABO+ RH PANEL Routine 08/23/2016 9:48 AM CDT documented in this encounter Results * BLOOD TYPE ABO+ RH PANEL (08/23/2016 9:48 AM CDT) ABO O 08/23/2016 12:19 PM CDT [facility] Rh Type Positive 08/23/2016 12:19 PM CDT [facility] Comment:History check perfor med. Retype required. Blood Bank BLOOD SPECIMEN / Unknown Venipuncture / Unknown 08/23/2016 9:48 AM CDT 08/23/2016 11:55 AM CDT Provider Unknown LAB - BLOOD BANK ORD ERABLES [facility] [address] [place] [address] documented in this encounter Visit Diagnoses Not on filedocumented in this encounter Care Teams Family And Consumer Science Professor Relationship Specialty Start Date End Date Blaine Cooley MD [address] [facility] [address] [facility] [address] [place] [id number] PCP - General 12/10/21 documented as of this encounter
--- OUTSIDE RECORDS SUMMARY | 2024-11-30 13:59 | XMS_ITS | Referral Summary ---
Author Organization [facility] Address [address] [place] [address] Care Team Providers Care Capsule Maker Name Role Phone Blaine Cooley MD Primary Care Provider [phone] Source Comments [facility],non-owned Affiliates and Associated Physician Practices is amultiple site organization consisting of ambulatory clinics and hospital sitesin [place], [place], [place] and [place]. This disclosure is being madepursuant to the Care Everywhere program and may not contain all information available regarding this patient. Last updated 18.[facility] [employer] Social History Tobacco Use Types Packs/Day Years [...] 02/26/2017 2:14 PM CDT Plan of Treatment Not on file Care Teams Capsule Maker Relationship Specialty Start Date End Date Blaine Cooley MD [address] [place] [address] PCP - General 12/10/21
--- OUTSIDE RECORDS SUMMARY | 2024-11-30 14:00 | XMS_ITS | Clinical Summary ---
Author Organization [employer] [facility] [employer] [address] - [address] Address [address] [facility] [address] [place] [address] Phone Care Team Providers Care Pillar Worker Name Role Phone Salima Adhikari MD Primary Care Provider [phone] Allergies Active Allergy Reactions Criticality Noted Date Comments Amoxicillin Hives High 04/29/2013 Erythromycin Nausea and Vomiting Low 04/29/2013 Medications pantoprazole (PROTONIX) 40 mg Oral TbEC Take 40 mg by mouth daily. Active vit-iron fumarate-FA ( S) 27-0.8 mg Oral Tab Take 1 Tab by mouth daily. Active omega-3 fatty acids-fish oil 300-1,000 mg Oral Cap Take by mouth daily. Active oxyCODONE-acet aminophen (PERCOCET) 5-325 mg Oral tablet Take 1 Tab by mouth every 4 hours as needed for Pain, Moderate (For Pain Scale 4-6). 40 Tab 0 3 Active docusate sodium (COLACE) 100 mg Oral capsule Take 1 Cap by mouth 2 times daily. 10 Cap 0 3 Active ibuprofen (MOTRIN) 600 mg Oral tablet Take 1 Tab by mouth every 6 hours as needed for Pain. 30 Tab 1 3 Active Norethindrn A-E estradiol-Iron () 1 mg-20 mcg (24)/75 mg (4) tablet TAKE ONE TABLET BY MOUTH ONCE DAILY 84 Tablet 3 10/09/2022 7:51 PM [employer] CHIE[employer] 2 Active drospirenone, contraceptive, (Slynd) 4 mg (28) Tablet Take 1 Tablet (4 mg) by mouth daily. 28 Tablet 3 3 Active norethindrone, Contraceptive, 0.35 mg Tablet Take 1 Tablet by mouth daily. 84 Tablet 4 12/29/2022 12:24 PM [employer] CHIEF 3 Active azithromycin (ZITHROMAX) 250 mg tablet TAKE 2 TABLETS BY MOUTH ON DAY 1, THEN TAKE 1 TABLET BY MOUTH DAILY FOR 4 DAYS. 6 Tablet 03/20/2023 4:43 PM CDT 3 Active buPROPion HCL (WELLBUTRIN XL) 150 mg Extended Release 24 hour tablet Take 1 Tablet (150 mg) by mouth daily in the morning. 30 Tablet 2 06/06/2023 9:13 AM CDT 3 Active traZODone (DESYREL) 50 mg tablet Take 1-3 tablets by mouth daily at bedtime 60 Tablet 3 02/03/2024 5:54 PM CDT 4 Active ibuprofen (MOTRIN) 800 mg tablet Take 1 Tablet (800 mg) by mouth 3 times daily. 30 Tablet 12/09/2023 7:04 PM [employer] CHIEF 4 Active acetaminophen (TYLENOL) 500 mg tablet 1000 mg orally three times a day 60 Tablet 4 Active etonogestrel-E thinyl Estradiol 0.12-0.015 mg/24 hr Ring INSERT 1 RING VAGINALLY EVERY 21 DAYS. REPLACE EVERY 21 DAYS IN A CONTINOUS MANNER. 4 Each 5 11/27/2024 3:39 PM [employer] CHIEF 4 Active semaglutide, weight loss, (WEGOVY) 2.4 mg/0.75 mL Pen Injector Inject 0.75 mL (2.4 mg) by subcutaneous injection every 7 days. 3 mL 1 09/10/2024 7:00 PM [employer]Y CHIEF 4 Active traZODone (DESYREL) 50 mg tablet Take 1-3 Tablets (50-150 mg) by mouth daily at bedtime. 60 Tablet 3 11/02/2024 5:50 PM GE[employer]ICAL PARTY CHIEF 4 Active tirzepatide, weight loss, (Zepbound) 15 mg/0.5 mL Pen Injector Inject 15 mg by subcutaneous injection every 7 days. 2 mL 5 06/18/2024 12:42 PM CDT 4 Active semaglutide, weight loss, (Wegovy) 2.4 mg/0.75 mL Pen Injector Inject 0.75 mL (2.4 mg) by subcutaneous injection every 7 days. 3 mL 08/02/2024 7:13 PM CDT 4 Active NuvaRing 0.12-0.015 mg/24 hr Ring Insert 1 ring vaginally every 21 days in a continuous manner to skip cycles. 4 Each 5 5 Active semaglutide, weight loss, (Wegovy) 2.4 mg/0.75 mL Pen Injector Inject 0.75 mL (2.4 mg) by subcutaneous injection every 7 days. 3 mL 11/27/2024 3:39 PM [employer]Y CHIEF 5 Active semaglutide, weight loss, (Wegovy) 2.4 mg/0.75 mL Pen Injector Inject 0.75 mL (2.4 mg) by subcutaneous injection every 7 days. 3 mL 11/02/2024 5:50 PM [employer]Y CHIEF 4 025 Discontin ued(Reord er) Active Problems Problem Noted Date Diagnosed Date CS 06/09, ghtn(tr prot, ldh 357), fibroids 2012 abdominal pain 04/29/2013 Encounters Date Type Department Care Team Description 11/18/2024 External Device Data [facility]STRACTION Provider, Abstract 09/28/2024 External Device Data [facility] Provider, Abstract 08/31/2024 External Device Data [facility]STRA[facility] Provider, Abstract from Last 3 Months Immunizations Immunization Administration Dates Next Due Influenza Seasonal Unspecified Formulation IM Family History Medical History Relation Name Comments Heart Disease Maternal Grandfather Heart Disease Mother mitral valve p rolapse Cancer Paternal Grandfather prostat e cancer Breast Cancer Paternal Grandmother Hypertension Paternal Grandmother Stroke Paternal Grandmother Relation Name Status Comments Maternal Grandfather Mother Paternal Grandfather Paternal Grandmother Social History Tobacco Use Types Packs/Day Years Used Date Smoking Tobacco: Former Cigarettes Q uit: 04/29/2007 Alcohol Use Standard Drinks/Week Comments No 0 (1 standard drink = 0.6 oz pur e alcohol) Comments Unknown Sex and Gender Information Value Date Recorded Sex Assigned at Not on file Legal Sex Female 6:11 AM [employer]IE[employer] Gender Identity Not on file Sexual Orientation Not on file Last Filed Vital Signs Vital Sign Reading Time Taken Comments Blood Pressure 152/96 06/13/2013 9:09 AM CDT Pulse 96 06/13/2013 9:09 AM CDT Temperature 36.8 ??C (98.2 ??F) 06/13/2013 9:09 AM CD T Respiratory Rate 18 06/13/2013 9:09 AM CDT Oxygen Saturation 98% 06/09/2013 3:15 PM CDT Inhaled Oxygen Concentration - - Weight 88 kg (194 lb) 06/08/2013 7:44 PM CDT Height 157.5 cm (5' 2 ) 06/08/2013 7:51 PM CDT Body Mass Index 35.48 06/08/2013 7:44 PM CDT Plan of Treatment Health Maintenance Due Date Last Done Comments DTAP/TDAP/TD VACCINES (1 - Tdap) 1999 HEPATITIS B VACCINES (1 of 3 - 19+ 3-dose series) 1999 CERVICAL CANCER SCREENING 2010 BREAST CANCER SCREENING 2020 INFLUENZA VACCINE (#1) 2024 10/27/2012 HPV VACCINES Aged Out No longer eligi ble based on patient's age to complete this topic PNEUMOCOCCAL VACCINE 0-64 YEARS Aged Out No longer eligible based on patient's age to complete this topic Medical Devices Implanted Type Area Bridge Crane Operator Device Identifier Shelf Expiration Date Model / Serial / Lot Barrier Seprafilm 5x6in 4301-02 - [id number] Implanted:Qty : 1 on 06/09/2013 by Minerva Hardin MD at [facility] Adhesion Barrier N/A: Uterus GENZYME- BIOSURG 01/25/2015 4301-02 / / [id number] Sealant Floseal [id number] - [id number] Implanted:Qty : 1 on 06/09/2013 by Minerva Hardin MD at [facility] Sealant N/A: Abdomen RODRÍGUEZ- BIOSCIENCE 05/09/2014 [id number] / / [id number] Insurance [facility] [id number] [place] [address] RX [employer] Member Subscriber Plan / Payer (Ef fective 2022-Present) Name:Radha Albarran Relation to Subscriber:Not on file Name:Radha Albarran Subscriber ID:Not on file Date of :1980 Payer ID:Not on file Group ID:[id number] Type:RX Commercial Address: [address] [employer] Member Subscriber Plan / Payer (Ef fective for All Dates) Name:RADHA ALBARRAN Relation to Subscriber:Self Name:Radha Albarran Payer ID:Not on file Group ID:[id number] Type:RX Commercial Address: [address] [employer] Commercial Advance Directives For more information, please contact: [phone] * Full Code (Latest Code Status on File) Date Activated Date Inactivated Comments 06/09/2013 11:49 AM 06/09/2013 5:18 PM * Full Code Date Activated Date Inactivated Comments 06/08/2013 8:36 PM 06/09/2013 11:49 AM * Full Code Date Activated Date Inactivated Comments 06/08/2013 7:45 PM 06/08/2013 8:36 PM Care Teams Pillar Worker Relationship Specialty Start Date End Date Salima Adhikari MD PCP - General Family Practice 08/17/12
[2024-11-30 15:08] LABS: Influenza A QL RT-PCR Negative (Negative); Influenza B QL RT-PCR Negative (Negative); RSV RNA, RT-PCR Negative (Negative); SARS-CoV-2 RNA PCR Positive (Negative)
== END 2024-11-30 13:48 | disposition home or self-care (01) ==
LOC: ANHLAB 13:48
PROVIDERS: PCP Internal Medicine; Visit Provider Internal Medicine
DX: U07.1 COVID-19 (principal)
CPT/HCPCS: 87637

== ENCOUNTER 2025-01-12 14:27 | Outpatient (CLI) | payer OTHER, SELFPAY ==
--- NOTE | ~2025-01-12 | MM_ITS ---
EXAMINATION: MM screening maldonado BI w gómez HISTORY: Screening TECHNIQUE: Craniocaudal and mediolateral oblique 3-D tomosynthesis images were obtained and synthetic 2-D images were generated. CAD analysis was submitted and interpreted. COMPARISON: No prior mammogram is available for comparison at this institution. BREAST PARENCHYMAL COMPOSITION: Not dense: There are scattered areas of fibroglandular density. FINDINGS: There is no evidence of suspicious mass, calcification, or architectural distortion to sugg est malignancy in either breast. There has been no suspicious interval change. IMPRESSION: 1. No mammographic evidence of malignancy. 2. Recommend routine screening mammography in one year. BI-RADS Category 1: Negative Reviewed, dictated and finalized at location B.
== END 2025-01-12 14:28 | disposition home or self-care (01) ==
LOC: MICIMG 14:30
PROVIDERS: PCP Internal Medicine; Visit Provider Obstetrics & Gynecology
DX: Z12.31 Encounter for screening mammogram for malignant neoplasm of breast (principal)
CPT/HCPCS: 77063; 77067

== ENCOUNTER 2025-06-14 08:33 | Outpatient (CLI) | payer OTHER, SELFPAY ==
--- NOTE | ~2025-06-14 | US_ITS ---
EXAMINATION: US thyroid DATE: 06/14/2025 08:53 INDICATION: Nontoxic single thyroid nodule TECHNIQUE: Multiple ultrasound images of the thyroid were obtained. COMPARISON: 06/08/2024 FINDINGS: The right thyroid lobe measures 5.5 x 1.8 x 1.8 cm. Within the right lobe of the thyroid gland is a 7.5 x 3.5 x 4.4 mm nodule (decreased in size from prior): Composition -solid or almost completely solid (2) Echogenicity - hypoechoic (2) Shape - wider than tall Margin - smooth Echogenic foci - none. = TR 4, moderately suspicious Greater than or equal to 1 cm, follow-up. Greater than or equal to 1.5 cm, FNA. The left thyroid lobe measures 5.0 x 1.6 x 1.4 cm. Within the left lobe of the thyroid gland is a 3.9 x 2.7 x 2.3 mm nodule: Composition -solid or almost completely solid (2) Echogenicity - hypoechoic (2) Shape - wider than tall Margin - smooth Echogenic foci - none. = TR 4, moderately suspicious Greater than or equal to 1 cm, follow-up. Greater than or equal to 1.5 cm, FNA. Within the left lobe of the thyroid gland is a 3.6 x 2.4 x 2.3 mm nodule: Composition -cystic or almost completely cystic Echogenicity -anechoic Shape - wider than tall Margin - smooth Echogenic foci - none. = TR 1, benign The isthmus measures 0.4cm in anterior to posterior dimension. There is otherwise normal echotexture and echogenicity throughout the remainder of the thyroid gland. No additional discrete nodules identified. Normal vascular flow is present. IMPRESSION: Subcentimeter TR 4 nodules detected bilaterally. These do not meet the size criteria for FNA or follow-up. TR 1 nodule within the left lobe of the thyroid gland. While follow-up is not recommended (as per TIRADs criteria) it may be performed, at the discretion of the referring clinician. Reviewed, dictated and finalized at location A. IMPRESSION: Subcentimeter TR 4 nodules detected bilaterally. These do not meet the size criteria for FNA or follow-up. TR 1 nodule within the left lobe of the thyroid gland. While follow-up is not recommended (as per TIRADs criteria) it may be performed , at the discretion of the referring clinician.
== END 2025-06-14 08:34 | disposition home or self-care (01) ==
LOC: GOSHIMG 08:34
PROVIDERS: PCP Internal Medicine; Visit Provider Internal Medicine
DX: E04.2 Nontoxic multinodular goiter (principal)
CPT/HCPCS: 76536